=== PATIENT | female | born 1935 | race Caucasian/White ===

== ENCOUNTER → 2019-04-13 | Day surgery (SDC) | payer MEDICARE, BC ==
[~2019-04-13] MED LIST: BISOPROLOL-HCT1 EAC2 PO; MELOXICAM15 MG PO; NAPROSYN500 MG PO; NORCO 5-325 TA1 EAC1 PO; ONE-DAILY MULT1 EAC1 PO; OXYBUTYNIN CHLOR5 M1 PO; TRAMADOL 50 MG50 MG PO; ZOCOR 20 MG TAB20 M1 PO
[2019-04-13 09:26] LABS: HEMATOCRIT 37.4 % (37.0-47.0); HEMOGLOBIN 12.8 gm/dL (12.0-15.0); MCH 30.9 pg (26.0-34.0); MCHC 34.2 g/dL (28.0-37.0); MCV 90.5 fL (80.0-100.0); RBC 4.14 mil/uL (4.20-5.00); RDW-CV 13.7 % (10.5-14.5); WBC 9.5 thou/uL (4.0-11.0)
[2019-04-13 09:34] LABS: CALCIUM 9.6 mg/dL (8.5-10.1); CREATININE 0.9 mg/dL (0.6-1.3); POTASSIUM 3.9 mmol/L (3.5-5.1)
--- NOTE | 2019-04-13 13:47 | EKG ---
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
--- NOTE | 2019-04-26 11:17 | OP ---
[address] [address] OPERATIVE REPORT Name: GARRETTYUDITH J Room: [facility]#: [id number] Admission: 04/13/19 Attend Phys: Olivier Cage II Discharge: Date of : 31 Report #: [id number] THIS REPORT FOR: //name// CC: RAJESH Cage DATE OF SERVICE: 04/13/2019 PREOPERATIVE DIAGNOSIS: Left distal radius fracture, greater than 3 parts. POSTOPERATIVE DIAGNOSIS: Left distal radius fracture, greater than 3 parts. PROCEDURE PERFORMED: Left distal radius fracture, greater than 3 parts open reduction and internal fixation. SURGEON: Olivier Cage II, DO. FUR SORTER: ZAHIRA Pal. ANESTHESIA: LMA. ESTIMATED BLOOD LOSS: Minimal. ANTIBIOTICS: Per operative record. DRAINS: None. COMPLICATIONS: None. CONDITION OF THE PATIENT: Stable to recovery room. DESCRIPTION OF PROCEDURE: The patient was taken to the operative suite and placed supine on the operative table, given appropriate anesthesia. The patient's left distal radius fracture was evaluated with C-arm and showed to have displacement and volar angulation. Surgery began made over the FCR approach carried down through the subcutaneous tissues. The flexor carpi radialis tendon was then retracted radially. Subcuticular layer was retracted laterally. The fracture was exposed under the pronator. It was reduced in near anatomic fashion, held with reduction forceps. The distal radius plate was then applied, checked with x-ray for appropriate anatomic alignment. This was then secured utilizing the nonlocking screw through the sliding hole. This was then secured to the radius. After reduction was performed, appropriate locking and nonlocking screws then placed through the distal radius plate. These were verified in both AP and lateral direction to be in excellent position. Irrigation was then performed of the wound and then closed with 2-0 Vicryl in [id number] fashion. Skin was closed with 2-0 Vicryl and [place] [address] OPERATIVE REPORT Name: YUDITH TUCKER Room: [facility]#: [id number] Admission: 04/13/19 Attend Phys: Olivier Cage II Discharge: Date of : 31 Report #: [id number]. X-ray was taken showing excellent anatomic reduction of the fracture. After skin was closed with Monocryl, it was then covered with Dermabond and sterile dressing and a splint was applied on the volar aspect. Kenny wrap was applied. The patient transported to recovery room in stable condition. Counts were correct throughout the procedure. <ELECTRONICALLY SIGNED> By: Olivier Cage II, DO 04/26/19 1117 2250 [id number] Cage II, DO /nt
== END | disposition home or self-care (01) ==
LOC: M.SUR 08:38
PROVIDERS: Orthopaedic Surgery
DX: S52.502A Unspecified fracture of the lower end of left radius, initial encounter for closed fracture (principal); Z79.899 Other long term (current) drug therapy; Z98.890 Other specified postprocedural states; X58.XXXA Exposure to other specified factors, initial encounter; Y93.89 Activity, other specified; Y92.89 Other specified places as the place of occurrence of the external cause; Y99.8 Other external cause status

== ENCOUNTER 2019-07-10 10:44 | Emergency (ER) | payer MEDICARE, BC ==
[~2019-07-10] VITALS: Ht 160 cm; Wt 56.7 kg
[2019-07-10 13:07] LABS: URINE BILIRUBIN NEGATIVE (Negative); URINE BLOOD NEGATIVE (Negative); URINE CLARITY CLEAR; URINE COLOR YELLOW; URINE GLUCOSE-RANDOM NEGATIVE (Negative); URINE KETONES 1+ (Negative); URINE LEUKOCYTES-REFLEX NEGATIVE (Negative); URINE NITRITE-REFLEX NEGATIVE (Negative); URINE PROTEIN NEGATIVE (Negative); URINE UROBILINOGEN 0.2 E.U./dl (0.2-1.0)
[2019-07-10 13:35] LABS: ABSOLUTE BASOPHILS 0.1 thou/uL (0.0-0.2); ABSOLUTE LYMPHOCYTES 1.1 thou/uL (0.8-5.3); ABSOLUTE MONOCYTES 0.7 thou/uL (0.0-1.2); ABSOLUTE NEUTROPHILS 7.1 thou/uL (1.6-8.1); BASOPHILS 0.7 %; EOSINOPHILS 0.4 %; HEMATOCRIT 37.7 % (37.0-47.0); HEMOGLOBIN 13.1 gm/dL (12.0-15.0); LYMPHOCYTES 12.1 %; MCH 30.2 pg (26.0-34.0); MCHC 34.7 g/dL (28.0-37.0); MCV 87.2 fL (80.0-100.0); MONOCYTES 8.2 %; MPV 7.7 fl. (7.2-11.1); NUCLEATED RBCS 0 /100WBC; PLATELET COUNT* 426 thou/uL (150-400); POLYS 78.6 %; RBC 4.32 mil/uL (4.20-5.00); RDW-CV 13.5 % (10.5-14.5)
[2019-07-10 13:57] LABS: CALCIUM 8.1 mg/dL (8.5-10.1); CREATININE 0.9 mg/dL (0.6-1.3); POTASSIUM 3.3 mmol/L (3.5-5.1)
[2019-07-10 14:02] LABS: TOTAL BILIRUBIN 0.5 mg/dL (<0.1-1.0); TOTAL PROTEIN 7.3 g/dL (6.4-8.2)
[2019-07-10] MEDS ORDERED: OXYCODONE HCL 55 MG PO (15:47)
[2019-07-10] MEDS ORDERED: MOBIC15 MG PO (16:02)
[2019-07-10 16:10] VITALS: BP 167/84
== END 2019-07-10 16:10 | disposition still patient (30) ==
LOC: M.ERS 10:44
PROVIDERS: Personal Emergency Response Attendant
DX: S32.511D Fracture of superior rim of right pubis, subsequent encounter for fracture with routine healing (principal); I10 Essential (primary) hypertension; E78.00 Pure hypercholesterolemia, unspecified; Z98.890 Other specified postprocedural states

== ENCOUNTER → 2019-07-26 | Outpatient (CLI) | payer MEDICARE, BC ==
[~2019-07-26] MED LIST changes: +MOBIC15 MG PO; +OXYCODONE HCL 55 MG PO
== END ==
LOC: M.CT 10:27
DX: M84.454A Pathological fracture, pelvis, initial encounter for fracture (principal)